=== PATIENT | female | born 1935 | race Hispanic/Latino ===

== ENCOUNTER 2016-12-06 07:36 | Day surgery (SDC) | payer MEDICARE, OTHER ==
[~2016-12-06 07:36] MED LIST: WATER FOR IRRIG STERILE IR ONE; WATER FOR IRRIG STERILE ONE
--- NOTE | 2016-12-06 08:18 | Anesthesia Consultation ---
Anesthesia Consult and Med Hx Date of service: 12/06/16 - Airway Anesthetic Teeth Evaluation: Partials ROM Head & Neck: Adequate Mental/Hyoid Distance: Adequate Mallampati Class: Class II Intubation Access Assessment: Probably Good - Pulmonary Exam CTA: Yes - Cardiac Exam Cardiac Exam: RRR - Pre-Operative Health Status ASA Pre-Surgery Classification: ASA3 Proposed Anesthetic Plan: MAC - Pulmonary Hx Sleep Apnea: Yes - Cardiovascular System Hx Hypertension: Yes Hx Cardia Arrhythmia: Yes (AFIB) - Central Nervous System CVA: Yes (LEFT SIDED WEAKNESS) - Endocrine Hx Renal Disease: Yes (STAGE III) Hx Hypothyroidism: Yes - Additional Comments Anesthesia Medical History Comments: CPAP. DM. A FIB. HTN. HYPOTHYROID. STAGE III KIDNEY DZ. [id number] X 2. LEFT SIDED WEAKNESS
--- NOTE | 2016-12-06 08:19 | Anesthesia Day of Surgery ---
Anesthesia Day of Surgery - Day of Surgery Patient Examined: Yes Patient H&P Reviewed: Yes Patient is NPO: Yes
[2016-12-06] MEDS ORDERED: DIPRIVAN 10 MG/ML IV ONE ×3 (08:22→09:05)
[2016-12-06] MEDS ORDERED: ADRENALIN ONE (08:55)
[2016-12-06] MEDS ORDERED: ADRENALIN IV ONE (09:00)
[2016-12-06] MEDS ORDERED: XYLOCAINE MPF 2% ONE (09:00)
--- NOTE | 2016-12-06 09:24 | Post Operative Note ---
Pre-op diagnosis: hematochezia, screening Post-op diagnosis: same (sigmoid mass, diverticulosis) Findings: sigmoid mass (~6-8 cm), piecemeal resection performed (epi injection 2 cc at based of polyp prior to hot snare) Diverticulosis Procedure: colonoscopy with piecemeal polypectomy of sigmoid pass Anesthesia: MAC Surgeon: BORIS BELL Estimated blood loss: minimal Pathology: list (sigmoid mass) Specimen disposition: to lab Condition: stable Disposition: same day
--- NOTE | 2016-12-06 09:37 | Post Anesthesia Evaluation ---
- Post Anesthesia Evaluation Patient Participated: Yes Airway Patent: Yes Stable Respiratory Function: Yes Nausea/Vomiting: No Temp > 96.8F: Yes Pain Manageable: Yes Adequeate Hydration: Yes Anesthesia Complications: No
[2016-12-06 10:24] VITALS: BP 158/76
[2016-12-06] MEDS ORDERED: NACL 0.9% 1000 ML 1,000 ML IV SCH (11:30)
--- NOTE | 2016-12-06 11:56 | Operative Report ---
PROCEDURE: Colonoscopy. PREOPERATIVE DIAGNOSES: Hematochezia, screening colonoscopy. POSTOPERATIVE DIAGNOSES: Sigmoid mass approximately 8 cm, status post piecemeal resection. ANESTHESIA: Monitored anesthesia care. COMPLICATIONS: No immediate complications. ESTIMATED BLOOD LOSS: Minimal. PROCEDURE: After consent was obtained, the patient was placed in left lateral decubitus position. The Fujinon colonoscope was advanced with direct vision and inserted through the anus and advanced to the cecum without difficulty. The quality of prep was fair. The views of the mucosa were good. The patient tolerated the procedure well. FINDINGS: There is approximately 8 cm, nonobstructing mass in the distal sigmoid colon. 2 mL of epinephrine were inserted at the base of the mass. Piecemeal resection was then performed with hot snare. One clip was placed at the polypectomy site. There were no signs of bleeding at the end of polypectomy. Mild diverticulosis. Sigmoid mass (nonobstructing, rule out malignancy). RECOMMENDATIONS: 1. Followup pathology. 2. Follow up in GI clinic in 2 weeks. 3. Repeat colonoscopy in 3 months to evaluate polypectomy site. 4. We will check CEA level and CT scan if there are signs of malignancy in the polyp. JOB# [id number] MERI/NTS
== END 2016-12-06 07:37 | disposition home or self-care (01) ==
LOC: GIO 07:36
PROVIDERS: ATTEND Internal Medicine Gastroenterology
DX: D12.5 Benign neoplasm of sigmoid colon (principal); K57.30 Diverticulosis of large intestine without perforation or abscess without bleeding; I48.91 Unspecified atrial fibrillation; E11.22 Type 2 diabetes mellitus with diabetic chronic kidney disease; I12.9 Hypertensive chronic kidney disease with stage 1 through stage 4 chronic kidney disease, or unspecified chronic kidney disease; N18.3 Chronic kidney disease, stage 3 (moderate); E03.9 Hypothyroidism, unspecified; G47.33 Obstructive sleep apnea (adult) (pediatric); Z86.73 Personal history of transient ischemic attack (TIA), and cerebral infarction without residual deficits; Z88.1 Allergy status to other antibiotic agents; Z88.8 Allergy status to other drugs, medicaments and biological substances; Z83.3 Family history of diabetes mellitus; Z82.49 Family history of ischemic heart disease and other diseases of the circulatory system; Z83.79 Family history of other diseases of the digestive system
CPT/HCPCS: 45381; 45385; 82962; 88305; J0171; J2704

== ENCOUNTER 2017-02-06 06:32 | Day surgery (SDC) | payer MEDICARE, OTHER ==
[2017-02-06] MEDS ORDERED: WATER FOR IRRIG STERILE IR ONE (07:13)
[2017-02-06] MEDS ORDERED: NACL 0.9% 1000 ML 1,000 ML ONE (07:32)
--- NOTE | 2017-02-06 07:38 | Anesthesia Day of Surgery ---
Anesthesia Day of Surgery - Day of Surgery Patient Examined: Yes Patient H&P Reviewed: Yes Patient is NPO: Yes
[2017-02-06] MEDS ORDERED: DIPRIVAN 10 MG/ML IV ONE (07:43)
--- NOTE | 2017-02-06 07:44 | Anesthesia Consultation ---
Anesthesia Consult and Med Hx Date of service: 02/06/17 - Airway Anesthetic Teeth Evaluation: Crowns, Partials (upper) ROM Head & Neck: Adequate Mental/Hyoid Distance: Adequate Mallampati Class: Class II Intubation Access Assessment: Probably Good - Pulmonary Exam CTA: Yes - Cardiac Exam Cardiac Exam: RRR - Pre-Operative Health Status ASA Pre-Surgery Classification: ASA3 Proposed Anesthetic Plan: MAC - Pulmonary Home Oxygen Therapy: Yes (when sleeping with CPAP. h/o pulm HTN) Hx Sleep Apnea: Yes (Uses CPAP @9cmH2O) - Cardiovascular System Hx Hypertension: Yes Hx Cardia Arrhythmia: Yes (AFIB) - Central Nervous System CVA: Yes (X2) - Endocrine Hx Renal Disease: Yes Hx Insulin Dependent Diabetes: Yes (diabetic peripheral neuropathy) Hx Hypothyroidism: Yes - Other Systems Hx Alcohol Use: No Hx Obesity: Yes (Morbid Obesity)
--- NOTE | 2017-02-06 07:44 | Anesthesia Consultation ---
Anesthesia Consult and Med Hx Date of service: 02/06/17 - Airway Anesthetic Teeth Evaluation: Good, Partials (upper) ROM Head & Neck: Adequate Mental/Hyoid Distance: Adequate Mallampati Class: Class II Intubation Access Assessment: Probably Good - Pulmonary Exam CTA: Yes - Cardiac Exam Cardiac Exam: RRR - Pre-Operative Health Status ASA Pre-Surgery Classification: ASA3 Proposed Anesthetic Plan: MAC - Pulmonary Hx Sleep Apnea: Yes (with CPCP) - Cardiovascular System Hx Hypertension: Yes Hx Cardia Arrhythmia: Yes (AFIB) - Central Nervous System CVA: Yes (X2) - Endocrine Hx Renal Disease: Yes Hx Hypothyroidism: Yes
[2017-02-06] MEDS ORDERED: NACL 0.9% 1000 ML 1,000 ML IV SCH (08:00)
--- NOTE | 2017-02-06 08:30 | Short Stay Summary ---
Short Stay Documentation Date of service: 02/06/17 Narrative H&P: 81 yo female with h/o large TA in sigmoid colon with piecemeal resection in November presents for surveillance flex sig to re-assess polypectomy site. States her diarrhea and hematochezia has resolved since previous colonoscopy. Denies new GI complaints at this time. - History H&P: obtained from office Social history: no significant social history - Allergies and Medications Current Medications: Allergies KORINA Inhibitors Adverse Reaction (Intermediate, Verified 02/06/17 07:56) QUIT BREATHING bacitracin [From Neosporin ([id number])] Adverse Reaction (Intermediate, Verified 02/06/17 07:56) BLISTERS bacitracin zinc [From Neosporin ([id number])] Adverse Reaction (Intermediate , Verified 02/06/17 07:56) BLISTERS neomycin sulfate [From Neosporin ([id number]-goe-inofl)] Adverse Reaction (Intermediate , Verified 02/06/17 07:56) BLISTERS polymyxin B [From Neosporin ([id number]-[id number])] Adverse Reaction (Intermediate, Verified 02/06/17 07:56) BLISTERS Home Medications Medication Instructions Recorded Confirmed Last Taken Type AtorvaSTATin [Lipitor] 40 mg PO QHS 12/06/16 02/06/17 02/05/17 History Digoxin [Digox] 0.125 mg PO DAILY 12/06/16 02/06/17 02/06/17 History Diltiazem HCl [Diltiazem 24Hr ER] 240 mg PO DAILY 12/06/16 02/06/17 02/05/17 History Doxazosin [Cardura] 4 mg PO QDAY 12/06/16 02/06/17 02/06/17 History Ergocalciferol [Vitamin D2] 1 cap PO QWEEK 12/06/16 02/06/17 01/31/17 History Furosemide [Furosemide] 20 mg PO DAILY 12/06/16 02/06/17 02/05/17 History Gabapentin [Gabapentin] 400 mg PO DAILY 12/06/16 02/06/17 02/05/17 History Glucosamine 1,500 Complex Cp 1,500 mg PO DAILY 12/06/16 02/06/17 02/05/17 History Levothyroxine Sodium [Synthroid] 112 mcg PO DAILY 12/06/16 02/06/17 02/05/17 History Losartan [Cozaar] 50 mg PO QDAY 12/06/16 02/06/17 02/05/17 History Chlorthalidone 25 mg PO DAILY 02/06/17 02/06/17 02/06/17 History Fish Oil 1 cap PO DAILY 02/06/17 02/06/17 02/05/17 History NovoLIN N 36 units SUB-Q BID 02/06/17 02/06/17 02/05/17 History NovoLOG Mix 70/30 VIAL 10 units SUB-Q TID 02/06/17 02/06/17 02/05/17 History Active Medications Sodium Chloride (Nacl 0.9% 1000 Ml) 1,000 mls @ 50 mls/hr IV DIRECT ИРИНА Last Admin: 02/06/17 07:59 Dose: 50 mls/hr - Physical exam General appearance: no acute distress Lungs: Clear to auscultation Heart: Regular rate, Normal S1, Normal S2 Gastrointestinal: normal, obese Extremities: abnormal (+ edema) - Brief post op/procedure progress note Date of procedure: 02/06/17 Pre-op diagnosis: surveillance colonoscopy, re-assess polypectomy site Post-op diagnosis: other (previous polypectomy site noted in distal sigmoid colon. Mild inflammation and erythema, no mass. biopsies obtained) Procedure: flex sig with biopsies Anesthesia: MAC Findings: flex sig: previous polypectomy site with mild inflammation/erythema. Biopsies obtained to r/o adenoma. Otherwise, no obvious residual polyp or mass Surgeon: BORIS BELL Estimated blood loss: minimal Pathology: list (sigmoid erythema/inflammation biopsies) Specimen disposition: to lab Condition: stable - Disposition Condition at discharge: Good Disposition: [id number] TO HOME OR SELFCARE Short Stay Discharge Plan Follow up with: TUTU GLYNN MD [Primary Care Provider] - 7 Days
[2017-02-06] MEDS ORDERED: WATER FOR IRRIG STERILE ONE (08:35)
--- NOTE | 2017-02-06 08:54 | Operative Report ---
Operative Report Operative Report: FLEXIBLE SIGMOIDOSCOPY DATE OF PROCEDURE: 02/06/2017 PRE-OP DIAGNOSIS: surveillance for recent polypectomy (recent piecemeal resection of ~7-8 cm polyp in sigmoid colon) POST-OP DIAGNOSIS: mild erythema and inflammation from prior polypectomy site ANESTHESIA: MAC COMPLICATIONS: No immediate complications ESTIMATED BLOOD LOSS: minimal PROCEDURE: After consent was obtained, the patient was placed in the left lateral decubitus position. The fujinon colonoscope was inserted into the rectum under direct vision and advanced to the descending colon without difficult. The patient tolerated the procedure well. The views of the mucosa was fair. The quality of prep was fair. FINDINGS: Mild erythematous and inflamed mucosa at prior polypectomy site in the distal sigmoid colon. Biopsies were obtained. Otherwise, no obvious residual polyp or mass seen. IMPRESSION: 1. Mild erythematous and inflamed mucosa from previous polypectomy site ( suspect secondary to healing mucosa from prior polypectomy). Biopsies were obtained to rule out adenomatous tissue. RECOMMENDATIONS: -follow-up pathology -return to GI clinic in 1 month -timing of surveillance colonoscopy based on pathology results (if adenomatous tissue, then would repeat in 3-6 months, otherwise repeat in 1-2 years)
[2017-02-06 09:44] VITALS: BP 141/65
== END 2017-02-06 06:33 | disposition home or self-care (01) ==
LOC: GIO 06:32
PROVIDERS: ATTEND Internal Medicine Gastroenterology
DX: Z09 Encounter for follow-up examination after completed treatment for conditions other than malignant neoplasm (principal); K52.9 Noninfective gastroenteritis and colitis, unspecified; E03.9 Hypothyroidism, unspecified; E11.42 Type 2 diabetes mellitus with diabetic polyneuropathy; I10 Essential (primary) hypertension; I48.91 Unspecified atrial fibrillation; I27.2 Other secondary pulmonary hypertension; E66.01 Morbid (severe) obesity due to excess calories; Z99.81 Dependence on supplemental oxygen; Z79.899 Other long term (current) drug therapy; Z79.4 Long term (current) use of insulin; Z88.1 Allergy status to other antibiotic agents; Z88.8 Allergy status to other drugs, medicaments and biological substances; Z86.73 Personal history of transient ischemic attack (TIA), and cerebral infarction without residual deficits; Z86.010 Personal history of colon polyps
CPT/HCPCS: 45331; 82962; 88305; J2704; J7030

== ENCOUNTER 2017-10-28 12:35 | Inpatient (IN) | payer MEDICARE, OTHER ==
[2017-10-28 13:42] LABS: Basophils % (Auto) 0.4 % (0.0-1.8); Eosinophils # (Auto) 0.1 K/mm3 (0.0-0.4); Eosinophils % (Auto) 1.3 % (0.0-4.3); Hematocrit 39.5 % (30.3-42.9); Hemoglobin 13.4 gm/dl (10.1-14.3); Lymphocytes # (Auto) 1.5 K/mm3 (1.2-5.4); Lymphocytes % (Auto) 15.4 % (13.4-35.0); Mean Corpuscular HGB Conc 34 % (30-34); Mean Corpuscular Hemoglobin 32 pg (28-32); Mean Corpuscular Volume 95 fl (79-97); Monocytes # (Auto) 0.7 K/mm3 (0.0-0.8); Monocytes % (Auto) 7.8 % (0.0-7.3); Platelet Count 162 K/mm3 (140-440); Red Blood Count 4.17 M/mm3 (3.65-5.03); Red Cell Distribution Width 13.5 % (13.2-15.2)
[2017-10-28 13:59] LABS: BUN/Creatinine Ratio 23; Blood Urea Nitrogen 18 mg/dL (7-17); Calcium 9.3 mg/dL (8.4-10.2); Hemolysis Index 7
--- NOTE | 2017-10-28 14:04 | XRay Report ---
ROUTINE CHEST, TWO VIEWS: HISTORY: Shortness of breath. Cardiomegaly, pulmonary venous congestion and trace right pleural effusion are identified. The lungs are clear otherwise. No pneumothorax. IMPRESSION: Mild CHF.
[2017-10-28 15:48] LABS: Alanine Aminotransferase 6 units/L (7-56); Albumin 3.6 g/dL (3.9-5)
[2017-10-28 15:53] LABS: Bilirubin,Direct < 0.2 mg/dL (0-0.2)
[2017-10-28 16:01] LABS: Bilirubin,Urine NEG (Negative); Blood,Urine NEG (Negative); Color,Urine Yellow (Yellow); Mucus,Urine FEW /HPF; Protein,Urine <15 mg/dL mg/dL (Negative)
--- NOTE | 2017-10-28 17:05 | Emergency Department Report ---
ED Shortness of Breath HPI - General Chief Complaint: Dyspnea/Respdistress Stated Complaint: SHORTNESS OF BREATH Time Seen by Provider: 10/28/17 14:12 Source: patient Mode of arrival: Wheelchair Limitations: Physical Limitation - History of Present Illness Initial Comments: Hypothyroidism, type 2 diabetes, atrial fibrillation, pulmonary hypertension, peripheral neuropathy, who reports having worsening shortness of breath over one week. She initially denied chest pain upon presentation. However upon questioning she does admit that she has pain that goes from "shoulder to shoulder". 4 years ago apparently she had to be cardioverted. She denies any cough at this time. She also admits to having a prior CVA. She also admits to having sleep apnea. 2011 she broke her left foot and since that time her left lower extremity has been edematous. The patient also takes digoxin. MD Complaint: shortness of breath -: Gradual, week(s) (1) Severity: moderate Consistency: constant Improves With: nothing Worsens With: exertion, movement Known History Of: COPD (states breathing treatments are not effective.) Associated Symptoms: denies other symptoms Treatments Prior to Arrival: none - Related Data Home Medications Medication Instructions Recorded Confirmed Last Taken AtorvaSTATin [Lipitor] 40 mg PO QHS 12/06/16 10/28/17 10/27/17 Digoxin [Digox] 0.125 mg PO DAILY 12/06/16 10/28/17 02/06/17 Diltiazem HCl [Diltiazem 24Hr ER] 240 mg PO DAILY 12/06/16 10/28/17 02/05/17 Doxazosin [Cardura] 4 mg PO QDAY 12/06/16 10/28/17 02/06/17 Ergocalciferol [Vitamin D2] 1 cap PO QWEEK 12/06/16 10/28/17 10/23/17 Gabapentin 400 mg PO TID 12/06/16 10/28/17 10/28/17 Levothyroxine Sodium [Synthroid] 112 mcg PO DAILY 12/06/16 10/28/17 10/28/17 Losartan [Cozaar] 50 mg PO QDAY 12/06/16 10/28/17 10/28/17 Chlorthalidone [Thalitone] 25 mg PO QDAY 10/28/17 10/28/17 Unknown Glucosamine HCl 1,500 mg PO DAILY 10/28/17 10/28/17 Unknown Insulin Aspart Protam & Aspart 10 units SUB-Q TID 10/28/17 10/28/17 10/28/17 [NovoLOG Mix 70-30 Flexpen] Insulin NPH, Human [NovoLIN N] 36 units SUB-Q BID 10/28/17 10/28/17 10/28/17 Multivitamin Tab [Multiple Vitamin 1 each PO DAILY 10/28/17 10/28/17 Unknown TAB (Theragran)] [place]-3/Dha/Epa/Fish Oil [Fish Oil 1 each PO DAILY 10/28/17 10/28/17 Unknown 1,000 mg Softgel] Allergies Allergy/AdvReac Type Severity Reaction Status Date / Time KORINA Inhibitors AdvReac Intermediate QUIT Verified 02/06/17 07:56 BREATHING bacitracin AdvReac Intermediate BLISTERS Verified 02/06/17 07:56 [From Neosporin ([id number])] bacitracin zinc AdvReac Intermediate BLISTERS Verified 02/06/17 07:56 [From Neosporin ([id number]-cit-mrtid)] neomycin sulfate AdvReac Intermediate BLISTERS Verified 02/06/17 07:56 [From Neosporin ([id number])] polymyxin B AdvReac Intermediate BLISTERS Verified 02/06/17 07:56 [From Neosporin ([id number])] ED Review of Systems ROS: Stated complaint: SHORTNESS OF BREATH Other details as noted in HPI Comment: All other systems reviewed and negative Constitutional: weakness Eyes: as per HPI ENT: as per HPI Respiratory: see HPI Cardiovascular: as per HPI Endocrine: see HPI Gastrointestinal: as per HPI Genitourinary: as per HPI Musculoskeletal: as per HPI Skin: as per HPI Neurological: as per HPI Psychiatric: as per HPI Hematological/Lymphatic: as per HPI ED Past Medical Hx - Past Medical History Hx Hypertension: Yes Hx Diabetes: Yes Hx Renal Disease: Yes Additional medical history: AFIB, PULMONARY HTN, NEUROPATHY - Surgical History Hx Cholecystectomy: Yes Hx Appendectomy: Yes Additional Surgical History: OVARIAN TUMOR - Social History Smoking Status: Never Smoker Substance Use Type: None - Medications Home Medications: Home Medications Medication Instructions Recorded Confirmed Last Taken Type AtorvaSTATin [Lipitor] 40 mg PO QHS 12/06/16 10/28/17 10/27/17 History Digoxin [Digox] 0.125 mg PO DAILY 12/06/16 10/28/17 02/06/17 History Diltiazem HCl [Diltiazem 24Hr ER] 240 mg PO DAILY 12/06/16 10/28/17 02/05/17 History Doxazosin [Cardura] 4 mg PO QDAY 12/06/16 10/28/17 02/06/17 History Ergocalciferol [Vitamin D2] 1 cap PO QWEEK 12/06/16 10/28/17 10/23/17 History Gabapentin 400 mg PO TID 12/06/16 10/28/17 10/28/17 History Levothyroxine Sodium [Synthroid] 112 mcg PO DAILY 12/06/16 10/28/17 10/28/17 History Losartan [Cozaar] 50 mg PO QDAY 12/06/16 10/28/17 10/28/17 History Chlorthalidone [Thalitone] 25 mg PO QDAY 10/28/17 10/28/17 Unknown History Glucosamine HCl 1,500 mg PO DAILY 10/28/17 10/28/17 Unknown History Insulin Aspart Protam & Aspart 10 units SUB-Q TID 10/28/17 10/28/17 10/28/17 History [NovoLOG Mix 70-30 Flexpen] Insulin NPH, Human [NovoLIN N] 36 units SUB-Q BID 10/28/17 10/28/17 10/28/17 History Multivitamin Tab [Multiple Vitamin 1 each PO DAILY 10/28/17 10/28/17 Unknown History TAB (Theragran)] [place]-3/Dha/Epa/Fish Oil [Fish Oil 1 each PO DAILY 10/28/17 10/28/17 Unknown History 1,000 mg Softgel] ED Physical Exam - General Limitations: Physical Limitation General appearance: alert, in no apparent distress - Head Head exam: Present: atraumatic, normocephalic - Eye Eye exam: Present: normal appearance, PERRL, EOMI - ENT ENT exam: Present: normal exam, normal orophraynx - Neck Neck exam: Present: normal inspection, full ROM - Respiratory Respiratory exam: Present: normal lung sounds bilaterally. Absent: respiratory distress, wheezes, rales, rhonchi - Cardiovascular Cardiovascular Exam: Present: bradycardia - GI/Abdominal GI/Abdominal exam: Present: soft, normal bowel sounds. Absent: distended, tenderness - Extremities Exam Extremities exam: Present: pedal edema (Left) - Neurological Exam Neurological exam: Present: alert, oriented X3, CN II-XII intact - Skin Skin exam: Present: warm, dry, intact ED Course Vital Signs 10/28/17 10/28/17 10/28/17 12:55 14:08 14:28 Temperature 98.3 F Pulse Rate 79 66 66 Respiratory 22 22 22 Rate Blood Pressure 104/74 Blood Pressure 133/67 [Left] O2 Sat by Pulse 95 94 97 Oximetry 10/28/17 10/28/17 10/28/17 14:30 15:00 15:30 Temperature Pulse Rate 65 55 L 67 Respiratory 18 20 16 Rate Blood Pressure 147/71 141/57 141/57 Blood Pressure [Left] O2 Sat by Pulse 95 97 96 Oximetry 10/28/17 10/28/17 16:00 16:30 Temperature Pulse Rate 52 L 48 L Respiratory 14 14 Rate Blood Pressure 139/47 139/54 Blood Pressure [Left] O2 Sat by Pulse 94 95 Oximetry - Reevaluation(s) Reevaluation #1: 10/28/17 17:08 We will need to admit the patient for further evaluation. She has an elevated BNP and DDIMER but denies history of CHF. Liklihood of DVT is present, so we will get an US of the lower extremities and due to her renal insufficiency we will get a VQ scan to assess for PE. 10/28/17 17:[address] Sheikh who is familiar with the patient. We will go ahead admit at this time. ED Medical Decision Making - Lab Data Result diagrams: 10/28/17 13:28 10/28/17 13:28 Critical care attestation.: If time is entered above; I have spent that time in minutes in the direct care of this critically ill patient, excluding procedure time. ED Disposition Clinical Impression: Shortness of breath on exertion, Bradycardia, Dyspnea on exertion A-fib Qualifiers: Atrial fibrillation type: chronic Qualified Code(s): I48.2 - Chronic atrial fibrillation Disposition: OP ADMIT IP TO THIS HOSP Is pt being admited?: Yes Does the pt Need Aspirin: No Condition: Stable
[2017-10-28 18:18] LABS: Chol/HDL Ratio 2.97 %
--- NOTE | 2017-10-28 20:46 | Nuclear Medicine Report ---
FINAL REPORT PROCEDURE: NM LUNG SCAN PERF/VENT TECHNIQUE: 5.0 mCi Tc-99m MAA was injected IV for pulmonary perfusion imaging in multiple projections. 15 MCi XE-[id number] was inhaled for pulmonary ventilation imaging in multiple projections. Injection site: RIGHT antecubital fossa. CPT 27447 REGULATORY GUIDELINES: The patient was released based upon guidelines established in [place] State Regulations for Protection Against Radiation, Chapter 3361-75-44-35, Release of Individuals Containing Radioactive Drugs or Implants. HISTORY: shortness of breath, Elevated D-Dimer, R/O PE COMPARISON: CHEST X-RAY 10/28/2017 FINDINGS: Perfusion: No defects . Ventilation: No defects . IMPRESSION: Normal Examination
[2017-10-29] MEDS ORDERED: ZOFRAN IV PRN
[2017-10-29] MEDS ORDERED: AMBIEN PO PRN
[2017-10-29] MEDS ORDERED: MORPHINE IV PRN
[2017-10-29] MEDS ORDERED: PERCOCET 5/325 PO PRN
[2017-10-29] MEDS ORDERED: TYLENOL PO PRN
--- NOTE | 2017-10-29 | Event Note ---
Date: 10/28/17 See dictated H/p in reports
[2017-10-29] MEDS: K-DUR PO SCH ×3 (02:01→22:07)
[2017-10-29 04:47] LABS: BUN/Creatinine Ratio 26; Blood Urea Nitrogen 21 mg/dL (7-17); Hemolysis Index 32
[2017-10-29] MEDS: LASIX IV SCH ×2 (06:50→19:37)
--- NOTE | 2017-10-29 13:49 | Consultation ---
History of Present Illness Consult date: 10/29/17 Requesting physician: DEDE CINTRON Consult reason: congestive heart failure History of present illness: The pt is an 82YO female with a past medical history significant for paroxysmal atrial flutter s/p DCCV 03/2012, HTN, HLP, DM, hypothyroidism, pulmonary HTN, JEF, chronic LLE edema (due to breaking her foot in 2011). She is followed in our office by Dr. Drake. She presented with complaints of progressively worsening shortness of breath and fatigue for the past 1 week. She denies any chest pain, palpitations, n/v, diaphoresis, dizziness or syncope. Following arrival, she was found to be in AFib with CVR. She reports that since her DCCV in 2011, she has not had any known recurrence of AFib. She was noted to AFib with SVR with a 3.2 second pause on telemetry overnight. Echo done 01/2015 showed EF 55-60%, impaired relaxation, RV mildly dilated, minimal MR, mild TR. Past History Past Medical History: atrial fib, diabetes, hypertension, hyperlipidemia, hypothyroidism, other (JEF) Medications and Allergies Allergies Allergy/AdvReac Type Severity Reaction Status Date / Time KORINA Inhibitors AdvReac Intermediate QUIT Verified 02/06/17 07:56 BREATHING bacitracin AdvReac Intermediate BLISTERS Verified 02/06/17 07:56 [From Neosporin ([id number])] bacitracin zinc AdvReac Intermediate BLISTERS Verified 02/06/17 07:56 [From Neosporin ([id number])] neomycin sulfate AdvReac Intermediate BLISTERS Verified 02/06/17 07:56 [From Neosporin ([id number])] polymyxin B AdvReac Intermediate BLISTERS Verified 02/06/17 07:56 [From Neosporin ([id number])] Home Medications Medication Instructions Recorded Confirmed Last Taken Type AtorvaSTATin [Lipitor] 40 mg PO QHS 12/06/16 10/28/17 10/27/17 History Digoxin [Digox] 0.125 mg PO DAILY 12/06/16 10/28/17 02/06/17 History Diltiazem HCl [Diltiazem 24Hr ER] 240 mg PO DAILY 12/06/16 10/28/17 02/05/17 History Doxazosin [Cardura] 4 mg PO QDAY 12/06/16 10/28/17 02/06/17 History Ergocalciferol [Vitamin D2] 1 cap PO QWEEK 12/06/16 10/28/17 10/23/17 History Gabapentin 400 mg PO TID 12/06/16 10/28/17 10/28/17 History Levothyroxine Sodium [Synthroid] 112 mcg PO DAILY 12/06/16 10/28/17 10/28/17 History Losartan [Cozaar] 50 mg PO QDAY 12/06/16 10/28/17 10/28/17 History Chlorthalidone [Thalitone] 25 mg PO QDAY 10/28/17 10/28/17 Unknown History Glucosamine HCl 1,500 mg PO DAILY 10/28/17 10/28/17 Unknown History Insulin Aspart Protam & Aspart 10 units SUB-Q TID 10/28/17 10/28/17 10/28/17 History [NovoLOG Mix 70-30 Flexpen] Insulin NPH, Human [NovoLIN N] 36 units SUB-Q BID 10/28/17 10/28/17 10/28/17 History Multivitamin Tab [Multiple Vitamin 1 each PO DAILY 10/28/17 10/28/17 Unknown History TAB (Theragran)] [place]-3/Dha/Epa/Fish Oil [Fish Oil 1 each PO DAILY 10/28/17 10/28/17 Unknown History 1,000 mg Softgel] Active Meds: Active Medications Acetaminophen (Tylenol) 650 mg PO Q4H PRN PRN Reason: Pain MILD(1-3)/Fever >100.5/DANIELLE Famotidine (Pepcid) 20 mg PO BID [facility] Furosemide (Lasix) 40 mg IV 0600,1800 [facility] Last Admin: 10/29/17 06:50 Dose: 40 mg Morphine Sulfate (Morphine) 2 mg IV Q4H PRN PRN Reason: Pain, Moderate (4-6) Ondansetron HCl (Zofran) 4 mg IV Q8H PRN PRN Reason: Nausea And Vomiting Oxycodone/Acetaminophen (Percocet 5/325) 1 tab PO Q6H PRN PRN Reason: Pain, Moderate (4-6) Potassium Chloride (K-Dur) 20 meq PO Q12HR [facility] Last Admin: 10/29/17 02:01 Dose: 20 meq Sodium Chloride (Sodium Chloride Flush Syringe 10 Ml) 10 ml IV BID ИРИНА Sodium Chloride (Sodium Chloride Flush Syringe 10 Ml) 10 ml IV PRN PRN PRN Reason: LINE FLUSH Zolpidem Tartrate (Ambien) 5 mg PO QHS PRN PRN Reason: Insomnia Review of Systems Constitutional: fatigue, no weight loss, no weight gain, no fever, no chills, no sweats Ears, nose, mouth and throat: no ear pain, no nose pain, no sinus pressure, no sinus pain Cardiovascular: shortness of breath, dyspnea on exertion, leg edema (chronic LLE ), no chest pain, no orthopnea, no palpitations, no rapid/irregular heart beat, no edema, no syncope, no lightheadedness Respiratory: shortness of breath, dyspnea on exertion, no cough, no congestion, no wheezing, no pain on inspiration Gastrointestinal: no abdominal pain, no nausea, no vomiting, no diarrhea, no constipation, no change in bowel habits Genitourinary Female: no pelvic pain, no flank pain, no dysuria, no urinary frequency, no urgency Musculoskeletal: no neck stiffness, no neck pain, no shooting arm pain, no arm numbness/tingling, no low back pain, no shooting leg pain, no leg numbness/ tingling, no redness of joints Integumentary: no rash, no pruritis, no redness, no sores, no wounds Neurological: no head injury, no paralysis, no weakness, no parathesias, no numbness, no tingling, no seizures, no syncope Psychiatric: no anxiety Endocrine: no cold intolerance, no heat intolerance Hematologic/Lymphatic: no easy bruising, no easy bleeding Allergic/Immunologic: no urticaria, no wheezing, no persistent infections Physical Examination Vital Signs Temp Pulse Resp BP Pulse Ox 98.3 F 79 22 104/74 95 10/28/17 12:55 10/28/17 12:55 10/28/17 12:55 10/28/17 12:55 10/28/17 12:55 General appearance: no acute distress HEENT: Positive: PERRL, Normocephaly, Mucus Membranes Moist Neck: Positive: neck supple, trachea midline Cardiac: Positive: irregularly irregular, S1/S2 Lungs: Positive: Decreased Breath Sounds Neuro: Positive: Grossly Intact Abdomen: Positive: Soft. Negative: Tender Skin: Negative: Rash, Wound Musculoskeletal: No Pain Extremities: Present: +2 Edema (LLE) Results 10/28/17 13:28 10/29/17 03:56 Cardiac Enzymes 10/28/17 Range/Units 14:53 AST 11 (5-40) units/L Lipids 10/28/17 Range/Units 17:15 Triglycerides 91 (2-149) mg/dL Cholesterol 113 (50-199) mg/dL HDL Cholesterol 38 L (40-59) mg/dL Cholesterol/HDL Ratio 2.97 % Comprehensive Metabolic Panel 10/28/17 10/28/17 10/29/17 Range/Units 13:28 14:53 03:56 Sodium 140 140 (137-145) mmol/L Potassium 4.3 4.9 (3.6-5.0) mmol/L Chloride 100.5 101.3 (98-107) mmol/L Carbon Dioxide 28 28 (22-30) mmol/L BUN 18 H 21 H (7-17) mg/dL Creatinine 0.8 0.8 (0.7-1.2) mg/dL Glucose 111 H 175 H (65-100) mg/dL Calcium 9.3 9.0 (8.4-10.2) mg/dL Direct Bilirubin < 0.2 (0-0.2) mg/dL Indirect Bilirubin 0.0 mg/dL AST 11 (5-40) units/L ALT 6 L (7-56) units/L Alkaline Phosphatase < 5 L (35-129) units/L Total Protein 6.2 L (6.3-8.2) g/dL Albumin 3.6 L (3.9-5) g/dL - Imaging and Cardiology Echo: pending, report reviewed ( 01/2015 showed EF 55-60%, impaired relaxation, RV mildly dilated, minimal MR, mild TR. ) EKG: report reviewed, image reviewed EKG interpretations - Telemetry EKG Rhythm: Atrial Fibrillation - EKG Supraventricular dysrhythmia: atrial fibrillation Assessment and Plan Assessment: Acute HFpEF Paroxysmal atrial flutter s/p DCCV 03/2012 - currently with CVR; SVR with a 3.2 second pause noted on telemetry overnight Elevated DDimer - V/Q scan normal HTN HLP DM H/o hypothyroidism H/o pulmonary HTN JEF Chronic LLE edema (due to breaking her foot in 2011) Plan: Hold home cardizem CD in setting of AFib with SVR overnight. Resume home losartan. Obtain digoxin level and consider resuming home digoxin pending digoxin level. Cont diuresis with IV lasix BID. Repeat BMP in AM. Initiate lovenox BID for systemic anticoagulation in regards to atrial fibrillation and consider conversion to OAC prior to hospital discharge. Await echo. Obtain BLE venous duplex to r/o venous thromboembolism. Assessment and plan reviewed with pt at bedside. The patient has been seen in conjunction with Dr. Lowry who agrees with the assessment and plan of care.
[2017-10-29] MEDS: SODIUM CHLORIDE FLUSH SYRINGE 10 ML IV SCH ×2 (14:00→22:10)
[2017-10-29] MEDS: PEPCID PO SCH ×2 (14:00→22:07)
--- NOTE | 2017-10-29 16:52 | History and Physical Report ---
History of Present Illness Date of examination: 10/28/17 Date of admission: 10/28/17 17:32 Chief complaint: Increasing SOB History of present illness: History of present illness: The pt is an 82YO female with a past medical history significant for paroxysmal atrial flutter s/p DCCV 03/2012, HTN, HLP, DM, hypothyroidism, pulmonary HTN, JEF, chronic LLE edema (due to breaking her foot in 2011). She is followed in our office by Dr. Drake. She presented with complaints of progressively worsening shortness of breath and fatigue for the past 1 week. She denies any chest pain, palpitations, n/v, diaphoresis, dizziness or syncope. Following arrival, she was found to be in AFib with CVR. She reports that since her DCCV in 2011, she has not had any known recurrence of AFib. She was noted to AFib with SVR with a 3.2 second pause on telemetry overnight. Echo done 01/2015 showed EF 55-60%, impaired relaxation, RV mildly dilated, minimal MR, mild TR. Past History Past Medical History: atrial fib, diabetes, hypertension, hyperlipidemia, hypothyroidism, other (JEF) Review of Systems Constitutional: fatigue, no weight loss, no weight gain, no fever, no chills, no sweats Ears, nose, mouth and throat: no ear pain, no nose pain, no sinus pressure, no sinus pain Cardiovascular: shortness of breath, dyspnea on exertion, leg edema (chronic LLE ), no chest pain, no orthopnea, no palpitations, no rapid/irregular heart beat, no edema, no syncope, no lightheadedness Respiratory: shortness of breath, dyspnea on exertion, no cough, no congestion, no wheezing, no pain on inspiration Gastrointestinal: no abdominal pain, no nausea, no vomiting, no diarrhea, no constipation, no change in bowel habits Genitourinary Female: no pelvic pain, no flank pain, no dysuria, no urinary frequency, no urgency Musculoskeletal: no neck stiffness, no neck pain, no shooting arm pain, no arm numbness/tingling, no low back pain, no shooting leg pain, no leg numbness/ tingling, no redness of joints Integumentary: no rash, no pruritis, no redness, no sores, no wounds Neurological: no head injury, no paralysis, no weakness, no parathesias, no numbness, no tingling, no seizures, no syncope Psychiatric: no anxiety Endocrine: no cold intolerance, no heat intolerance Hematologic/Lymphatic: no easy bruising, no easy bleeding Allergic/Immunologic: no urticaria, no wheezing, no persistent infections Past History Past Medical History: atrial fib, diabetes, hypertension, hyperlipidemia, hypothyroidism, other (JEF) Past Surgical History: No surgical history Social history: full code Family history: hypertension Medications and Allergies Allergies Allergy/AdvReac Type Severity Reaction Status Date / Time KORINA Inhibitors AdvReac Intermediate QUIT Verified 02/06/17 07:56 BREATHING bacitracin AdvReac Intermediate BLISTERS Verified 02/06/17 07:56 [From Neosporin ([id number])] bacitracin zinc AdvReac Intermediate BLISTERS Verified 02/06/17 07:56 [From Neosporin ([id number])] neomycin sulfate AdvReac Intermediate BLISTERS Verified 02/06/17 07:56 [From Neosporin ([id number])] polymyxin B AdvReac Intermediate BLISTERS Verified 02/06/17 07:56 [From Neosporin ([id number])] Home Medications Medication Instructions Recorded Confirmed Last Taken Type AtorvaSTATin [Lipitor] 40 mg PO QHS 12/06/16 10/28/17 10/27/17 History Digoxin [Digox] 0.125 mg PO DAILY 12/06/16 10/28/17 02/06/17 History Diltiazem HCl [Diltiazem 24Hr ER] 240 mg PO DAILY 12/06/16 10/28/17 02/05/17 History Doxazosin [Cardura] 4 mg PO QDAY 12/06/16 10/28/17 02/06/17 History Ergocalciferol [Vitamin D2] 1 cap PO QWEEK 12/06/16 10/28/17 10/23/17 History Gabapentin 400 mg PO TID 12/06/16 10/28/17 10/28/17 History Levothyroxine Sodium [Synthroid] 112 mcg PO DAILY 12/06/16 10/28/17 10/28/17 History Losartan [Cozaar] 50 mg PO QDAY 12/06/16 10/28/17 10/28/17 History Chlorthalidone [Thalitone] 25 mg PO QDAY 10/28/17 10/28/17 Unknown History Glucosamine HCl 1,500 mg PO DAILY 10/28/17 10/28/17 Unknown History Insulin Aspart Protam & Aspart 10 units SUB-Q TID 10/28/17 10/28/17 10/28/17 History [NovoLOG Mix 70-30 Flexpen] Insulin NPH, Human [NovoLIN N] 36 units SUB-Q BID 10/28/17 10/28/17 10/28/17 History Multivitamin Tab [Multiple Vitamin 1 each PO DAILY 10/28/17 10/28/17 Unknown History TAB (Theragran)] [place]-3/Dha/Epa/Fish Oil [Fish Oil 1 each PO DAILY 10/28/17 10/28/17 Unknown History 1,000 mg Softgel] Active Meds: Active Medications Acetaminophen (Tylenol) 650 mg PO Q4H PRN PRN Reason: Pain MILD(1-3)/Fever >100.5/DANIELLE Atorvastatin Calcium (Lipitor) 40 mg PO QHS [facility] Enoxaparin Sodium (Lovenox) 100 mg SUB-Q Q12HR [facility] Famotidine (Pepcid) 20 mg PO BID [facility] Last Admin: 10/29/17 14:00 Dose: 20 mg Furosemide (Lasix) 40 mg IV 0600,1800 [facility] Last Admin: 10/29/17 06:50 Dose: 40 mg Losartan Potassium (Cozaar) 50 mg PO QDAY [facility] Morphine Sulfate (Morphine) 2 mg IV Q4H PRN PRN Reason: Pain, Moderate (4-6) Ondansetron HCl (Zofran) 4 mg IV Q8H PRN PRN Reason: Nausea And Vomiting Oxycodone/Acetaminophen (Percocet 5/325) 1 tab PO Q6H PRN PRN Reason: Pain, Moderate (4-6) Potassium Chloride (K-Dur) 20 meq PO Q12HR [facility] Last Admin: 10/29/17 13:59 Dose: 20 meq Sodium Chloride (Sodium Chloride Flush Syringe 10 Ml) 10 ml IV BID [facility] Last Admin: 10/29/17 14:00 Dose: 10 ml Sodium Chloride (Sodium Chloride Flush Syringe 10 Ml) 10 ml IV PRN PRN PRN Reason: LINE FLUSH Zolpidem Tartrate (Ambien) 5 mg PO QHS PRN PRN Reason: Insomnia Exam - Constitutional Vitals: Temp Pulse Resp BP Pulse Ox 97.8 F 76 18 180/70 96 10/29/17 13:50 10/29/17 13:50 10/29/17 13:50 10/29/17 13:50 10/29/17 07:53 General appearance: Present: no acute distress, well-nourished - EENT Eyes: Present: PERRL ENT: hearing intact, clear oral mucosa - Neck Neck: Present: supple, normal ROM - Respiratory Respiratory effort: normal Respiratory: bilateral: CTA - Cardiovascular Heart Sounds: Present: S1 & S2. Absent: rub, click - Extremities Extremities: pulses symmetrical, No edema Peripheral Pulses: within normal limits - Abdominal General gastrointestinal: Present: soft, non-tender, non-distended, normal bowel sounds Female genitourinary: Present: normal - Integumentary Integumentary: Present: clear, warm, dry - Musculoskeletal Musculoskeletal: gait normal, strength equal bilaterally - Psychiatric Psychiatric: appropriate mood/affect, intact judgment & insight - Neurologic Neurologic: CNII-XII intact, moves all extremities Results - Labs CBC & Chem 7: 10/30/17 04:33 11/01/17 06:42 Labs: Laboratory Last Values WBC 9.6 K/mm3 (4.5-11.0) 10/28/17 13:28 RBC 4.17 M/mm3 (3.65-5.03) 10/28/17 13:28 Hgb 13.4 gm/dl (10.1-14.3) 10/28/17 13:28 Hct 39.5 % (30.3-42.9) 10/28/17 13:28 MCV 95 fl (79-97) 10/28/17 13:28 MCH 32 pg (28-32) 10/28/17 13:28 MCHC 34 % (30-34) 10/28/17 13:28 RDW 13.5 % (13.2-15.2) 10/28/17 13:28 Plt Count 162 K/mm3 (140-440) 10/28/17 13:28 Lymph % (Auto) 15.4 % (13.4-35.0) 10/28/17 13:28 [place] % (Auto) 7.8 % (0.0-7.3) H 10/28/17 13:28 Eos % (Auto) 1.3 % (0.0-4.3) 10/28/17 13:28 Baso % (Auto) 0.4 % (0.0-1.8) 10/28/17 13:28 Lymph # 1.5 K/mm3 (1.2-5.4) 10/28/17 13:28 [place] # 0.7 K/mm3 (0.0-0.8) 10/28/17 13:28 Eos # 0.1 K/mm3 (0.0-0.4) 10/28/17 13:28 Baso # 0.0 K/mm3 (0.0-0.1) 10/28/17 13:28 Seg Neutrophils % 75.1 % (40.0-70.0) H 10/28/17 13:28 Seg Neutrophils # 7.3 K/mm3 (1.8-7.7) 10/28/17 13:28 D-Dimer 1346.39 ng/mlDDU (0-234) H 10/28/17 14:21 Sodium 140 mmol/L (137-145) 10/29/17 03:56 Potassium 4.9 mmol/L (3.6-5.0) 10/29/17 03:56 Chloride 101.3 mmol/L (98-107) 10/29/17 03:56 Carbon Dioxide 28 mmol/L (22-30) 10/29/17 03:56 Anion Gap 16 mmol/L 10/29/17 03:56 BUN 21 mg/dL (7-17) H 10/29/17 03:56 Creatinine 0.8 mg/dL (0.7-1.2) 10/29/17 03:56 Estimated GFR > 60 ml/min 10/29/17 03:56 BUN/Creatinine Ratio 26 % 10/29/17 03:56 Glucose 175 mg/dL (65-100) H 10/29/17 03:56 POC Glucose 144 (70-105) H 10/29/17 06:43 Hemoglobin A1c 5.8 % (4-6) 10/29/17 00:36 Calcium 9.0 mg/dL (8.4-10.2) 10/29/17 03:56 Total Bilirubin 0.50 mg/dL (0.1-1.2) 10/28/17 14:53 Direct Bilirubin < 0.2 mg/dL (0-0.2) 10/28/17 14:53 Indirect Bilirubin 0.0 mg/dL 10/28/17 14:53 AST 11 units/L (5-40) 10/28/17 14:53 ALT 6 units/L (7-56) L 10/28/17 14:53 Alkaline Phosphatase < 5 units/L (35-129) L 10/28/17 14:53 Troponin T 0.043 ng/mL (0.00-0.029) H 10/28/17 17:15 NT-Pro-B Natriuret Pep 2748 pg/mL (0-900) H 10/28/17 14:53 Total Protein 6.2 g/dL (6.3-8.2) L 10/28/17 14:53 Albumin 3.6 g/dL (3.9-5) L 10/28/17 14:53 Albumin/Globulin Ratio 1.4 % 10/28/17 14:53 Triglycerides 91 mg/dL (2-149) 10/28/17 17:15 Cholesterol 113 mg/dL (50-199) 10/28/17 17:15 LDL Cholesterol Direct 66 mg/dL (50-130) 10/28/17 17:15 HDL Cholesterol 38 mg/dL (40-59) L 10/28/17 17:15 Cholesterol/HDL Ratio 2.97 % 10/28/17 17:15 Urine Color Yellow (Yellow) 10/28/17 15:42 Urine Turbidity Clear (Clear) 10/28/17 15:42 Urine pH 7.0 (5.0-7.0) 10/28/17 15:42 Ur Specific [place] 1.014 (1.003-1.030) 10/28/17 15:42 Urine Protein <15 mg/dl mg/dL (Negative) 10/28/17 15:42 Urine Glucose (UA) Neg mg/dL (Negative) 10/28/17 15:42 Urine Ketones Neg mg/dL (Negative) 10/28/17 15:42 Urine Blood Neg (Negative) 10/28/17 15:42 Urine Nitrite Neg (Negative) 10/28/17 15:42 Urine Bilirubin Neg (Negative) 10/28/17 15:42 Urine Urobilinogen 2.0 mg/dL (<2.0) 10/28/17 15:42 Ur Leukocyte Esterase Neg (Negative) 10/28/17 15:42 Urine WBC (Auto) 4.0 /HPF (0.0-6.0) 10/28/17 15:42 Urine RBC (Auto) 3.0 /HPF (0.0-6.0) 10/28/17 15:42 U Epithel Cells (Auto) 5.0 /HPF (0-13.0) 10/28/17 15:42 Urine Mucus Few /HPF 10/28/17 15:42 Digoxin 1.0 ng/mL (0.9-2.0) 10/29/17 14:38 Assessment and Plan Assessment and plan: Assessment: Acute HF--Diastolic Paroxysmal atrial flutter s/p DCCV 03/2012 - currently with CVR; SVR with a 3.2 second pause noted on telemetry overnight Elevated DDimer - V/Q scan normal HTN HLP DM H/o hypothyroidism H/o pulmonary HTN JEF Chronic LLE edema (due to breaking her foot in 2011) Plan: Hold home cardizem CD in setting of AFib with SVR overnight. Resume home losartan. Obtain digoxin level and consider resuming home digoxin pending digoxin level. Cont diuresis with IV lasix BID. Repeat BMP in AM. Initiate lovenox BID for systemic anticoagulation in regards to atrial fibrillation and consider conversion to OAC prior to hospital discharge. Await echo. Obtain BLE venous duplex to r/o venous thromboembolism. Assessment and plan reviewed with pt at bedside. Advance Directives: Yes (Full code) VTE prophylaxis?: Chemical Plan of care discussed with patient/family: Yes
--- NOTE | 2017-10-29 17:39 | Progress Note ---
Assessment and Plan Assessment: Acute HF--Diastolic Paroxysmal atrial flutter s/p DCCV 03/2012 - currently with CVR; SVR with a 3.2 second pause noted on telemetry overnight Elevated DDimer - V/Q scan normal HTN HLP DM H/o hypothyroidism H/o pulmonary HTN JEF Chronic LLE edema (due to breaking her foot in 2011) Plan: Hold home cardizem CD in setting of AFib with SVR overnight. Resume home losartan. Obtain digoxin level and consider resuming home digoxin pending digoxin level. Cont diuresis with IV lasix BID. Repeat BMP in AM. Initiate lovenox BID for systemic anticoagulation in regards to atrial fibrillation and consider conversion to OAC prior to hospital discharge. Await echo. Obtain BLE venous duplex to r/o venous thromboembolism. Assessment and plan reviewed with pt at bedside. Subjective Date of service: 10/29/17 Principal diagnosis: Acute Diastolic HF Interval history: Sx better Objective - Constitutional Vitals: Vital Signs - 12hr 10/29/17 10/29/17 07:53 13:50 Temperature 97.8 F Pulse Rate 70 76 Respiratory 18 Rate Blood Pressure 180/70 [Left] O2 Sat by Pulse 96 Oximetry General appearance: Present: no acute distress, well-nourished - EENT Eyes: PERRL, EOM intact ENT: hearing intact, clear oral mucosa Ears: bilateral: normal - Neck Neck: supple, normal ROM - Respiratory Respiratory effort: normal Respiratory: bilateral: CTA - Breasts Breasts: normal - Cardiovascular Rhythm: regular Heart Sounds: Present: S1 & S2. Absent: gallop, rub Extremities: pulses intact, No edema, normal color, Full ROM - Gastrointestinal General gastrointestinal: Present: soft, non-tender, non-distended, normal bowel sounds - Genitourinary Female genitourinary: normal - Integumentary Integumentary: clear, warm, dry - Musculoskeletal Musculoskeletal: 1, strength equal bilaterally - Neurologic Neurologic: moves all extremities - Psychiatric Psychiatric: memory intact, appropriate mood/affect, intact judgment & insight - Labs CBC & Chem 7: 10/30/17 04:33 11/01/17 06:42 Labs: Abnormal lab results 10/28/17 10/28/17 10/28/17 Range/Units 17:15 20:57 22:09 BUN (7-17) mg/dL Glucose (65-100) mg/dL POC Glucose 51 L 119 H (70-105) Troponin T 0.043 H (0.00-0.029) ng/mL HDL Cholesterol 38 L (40-59) mg/dL 10/29/17 10/29/17 Range/Units 03:56 06:43 BUN 21 H (7-17) mg/dL Glucose 175 H (65-100) mg/dL POC Glucose 144 H (70-105) Troponin T (0.00-0.029) ng/mL HDL Cholesterol (40-59) mg/dL
[2017-10-29] MEDS: THERAGRAN Tab PO SCH (19:34)
[2017-10-29] MEDS: LANOXIN PO SCH (19:36)
[2017-10-29] MEDS: CARDIZEM CD PO SCH (19:36)
[2017-10-29] MEDS: CARDURA PO SCH (19:36)
[2017-10-29] MEDS: COZAAR PO SCH (19:37)
[2017-10-29] MEDS ORDERED: LOVENOX SUB-Q SCH (22:00)
[2017-10-29] MEDS: LOVENOX SUB-Q SCH (22:07)
[2017-10-29] MEDS: ELIQUIS PO SCH (22:07)
[2017-10-29] MEDS: NEURONTIN PO SCH (22:08)
[2017-10-30 05:10] LABS: Basophils % (Auto) 0.4 % (0.0-1.8); Eosinophils # (Auto) 0.2 K/mm3 (0.0-0.4); Eosinophils % (Auto) 2.4 % (0.0-4.3); Hematocrit 36.7 % (30.3-42.9); Hemoglobin 12.3 gm/dl (10.1-14.3); Lymphocytes # (Auto) 1.4 K/mm3 (1.2-5.4); Mean Corpuscular HGB Conc 34 % (30-34); Mean Corpuscular Hemoglobin 31 pg (28-32); Mean Corpuscular Volume 94 fl (79-97); Monocytes # (Auto) 0.7 K/mm3 (0.0-0.8); Monocytes % (Auto) 8.6 % (0.0-7.3); Platelet Count 179 K/mm3 (140-440); Red Blood Count 3.92 M/mm3 (3.65-5.03); Red Cell Distribution Width 13.4 % (13.2-15.2)
[2017-10-30 05:25] LABS: Alanine Aminotransferase 6 units/L (7-56); Albumin 3.1 g/dL (3.9-5); BUN/Creatinine Ratio 24; Blood Urea Nitrogen 17 mg/dL (7-17); Calcium 9.1 mg/dL (8.4-10.2); Hemolysis Index 0
[2017-10-30] MEDS: LASIX IV SCH ×2 (06:27→18:17)
[2017-10-30] MEDS: SODIUM CHLORIDE FLUSH SYRINGE 10 ML IV PRN (06:27)
[2017-10-30] MEDS: SYNTHROID PO SCH (06:27)
[2017-10-30] MEDS: NEURONTIN PO SCH ×3 (08:52→21:23)
[2017-10-30] MEDS: LANOXIN PO SCH (10:38)
[2017-10-30] MEDS: ELIQUIS PO SCH ×2 (10:38→21:24)
[2017-10-30] MEDS: K-DUR PO SCH ×2 (10:38→21:23)
[2017-10-30] MEDS: CARDIZEM CD PO SCH (10:38)
[2017-10-30] MEDS: PEPCID PO SCH ×2 (10:39→21:23)
[2017-10-30] MEDS: THERAGRAN Tab PO SCH (10:39)
[2017-10-30] MEDS: CARDURA PO SCH (10:39)
[2017-10-30] MEDS: THALITONE PO SCH (10:40)
[2017-10-30] MEDS: COZAAR PO SCH (10:40)
[2017-10-30] MEDS: SODIUM CHLORIDE FLUSH SYRINGE 10 ML IV SCH ×2 (10:44→21:24)
--- NOTE | 2017-10-30 11:33 | Progress Note ---
Assessment and Plan Assessment: Acute HFpEF, EF 60-65% Paroxysmal atrial flutter s/p DCCV 03/2012 - currently with CVR; SVR with a 3.2 second pause noted on telemetry 10/29 Elevated DDimer - V/Q scan normal HTN HLP DM H/o hypothyroidism H/o pulmonary HTN JEF Chronic LLE edema (due to breaking her foot in 2011) Plan: Clinically improving. Cont diuresis with IV lasix BID. Repeat BMP in AM. Patient remains in afib with CVR, no significant pauses noted overnight. Continue cardizem and digoxin. Continue tele monitoring. Echo showed mild LVH, EF 60-65%, mild-mod MR, mild-mod TR, RVSP 69mmHg. BLE venous Duplex showed probable chronic DVT of the right popliteal. Elquis initiated. Assessment and plan reviewed with pt at bedside. The patient has been seen in conjunction with Dr. Lowry who agrees with the assessment and plan of care. Subjective Date of service: 10/30/17 Principal diagnosis: acute HFpEF Interval history: The patient is resting in bed. Shortness of breath improved but not yet back to baseline. Denies chest pain or shortness of breath. Atrial fibrillation with CVR on the monitor, HR as low as 40s overnight. Pt. asymptomatic. Objective Last Vital Signs Temp 98.1 F 10/30/17 05:17 Pulse 77 10/30/17 10:38 Resp 18 10/30/17 05:17 BP 163/89 10/30/17 10:40 Pulse Ox 94 10/30/17 05:17 - Physical Examination General: No Apparent Distress HEENT: Positive: PERRL, Normocephaly, Mucus Membranes Moist Neck: Positive: neck supple, trachea midline Cardiac: Positive: irregularly irregular, S1/S2 Lungs: Positive: Decreased Breath Sounds Neuro: Positive: Grossly Intact Abdomen: Positive: Soft. Negative: Tender Skin: Negative: Rash, Wound Musculoskeletal: No Pain Extremities: Present: +2 Edema (LLE) - Labs and Meds Cardiac Enzymes 10/30/17 Range/Units 04:33 AST 12 (5-40) units/L CBC 10/30/17 Range/Units 04:33 WBC 7.9 (4.5-11.0) K/mm3 RBC 3.92 (3.65-5.03) M/mm3 Hgb 12.3 (10.1-14.3) gm/dl Hct 36.7 (30.3-42.9) % Plt Count 179 (140-440) K/mm3 Lymph # 1.4 (1.2-5.4) K/mm3 [place] # 0.7 (0.0-0.8) K/mm3 Eos # 0.2 (0.0-0.4) K/mm3 Baso # 0.0 (0.0-0.1) K/mm3 Comprehensive Metabolic Panel 10/30/17 Range/Units 04:33 Sodium 141 (137-145) mmol/L Potassium 4.1 (3.6-5.0) mmol/L Chloride 99.1 (98-107) mmol/L Carbon Dioxide 32 H (22-30) mmol/L BUN 17 (7-17) mg/dL Creatinine 0.7 (0.7-1.2) mg/dL Calcium 9.1 (8.4-10.2) mg/dL AST 12 (5-40) units/L ALT 6 L (7-56) units/L Alkaline Phosphatase 72 (35-129) units/L Total Protein 6.2 L (6.3-8.2) g/dL Albumin 3.1 L (3.9-5) g/dL - Imaging and Cardiology EKG: report reviewed, image reviewed Echo: report reviewed ( 10/2017: mild LVH, EF 60-65%, mild-mod MR, mild-mod TR, RVSP 69mmHg) - Telemetry EKG Rhythm: Atrial Fibrillation
[2017-10-30] MEDS: LOVENOX SUB-Q SCH (14:21)
--- NOTE | 2017-10-30 15:31 | Vascular Lab Report ---
LOWER EXTREMITY VENOUS DUPLEX: REASON FOR EXAM: Short of breath and elevated d-dimer. COMMENTS ON THE RIGHT: A small area of chronic partially occluding thrombus is seen in the proximal popliteal vein. The remaining veins visualized are freely compressible without evidence of internal echogenicity. Spontaneous and phasic flow is present proximally. COMMENTS ON THE LEFT: All veins visualized are freely compressible without evidence of internal echogenicity. Flow is spontaneous and phasic throughout. IMPRESSION: A small amount of partially occluding chronic thrombus is seen in the right popliteal vein. No evidence of acute deep venous thrombosis in either lower extremity. The study was somewhat technically limited due to patient body habitus.
--- NOTE | 2017-10-30 16:25 | Progress Note ---
Assessment and Plan - Patient Problems (1) Acute diastolic (congestive) heart failure Current Visit: Yes Status: Acute Plan to address problem: Improved Cont Diuretics (2) Paroxysmal atrial fibrillation Current Visit: Yes Status: Acute Plan to address problem: Rate controlled now Cont Digoxin and Diltiazem Vascular consulted reg Oral anticoagulation in view of past retroperitoneal Hge around 2013 (3) Chronic deep vein thrombosis (DVT) of popliteal vein of right lower extremity Current Visit: Yes Status: Chronic Plan to address problem: Vascular consulted reg Oral anticoagulation in view of past retroperitoneal Hge around 2013 (4) JEF (obstructive sleep apnea) Current Visit: Yes Status: Chronic Plan to address problem: CPAP as necessary (5) HTN (hypertension) Current Visit: Yes Status: Chronic Qualifiers: Hypertension type: essential hypertension Qualified Code(s): I10 - Essential (primary) hypertension Plan to address problem: Cont antihypertensives (6) T2DM (type 2 diabetes mellitus) Current Visit: Yes Status: Chronic Qualifiers: Diabetes mellitus senior living insulin use: with senior living use Diabetes mellitus complication detail: with polyneuropathy Plan to address problem: Cont Insulin and coverage (7) HLD (hyperlipidemia) Current Visit: Yes Status: Chronic Qualifiers: Hyperlipidemia type: mixed hyperlipidemia Qualified Code(s): E78.2 - Mixed hyperlipidemia Plan to address problem: Cont statins (8) DVT prophylaxis Current Visit: Yes Status: Acute Plan to address problem: On Heparin Subjective Date of service: 10/30/17 Principal diagnosis: acute Heart failure Interval history: Sx better Objective - Constitutional Vitals: Vital Signs - 12hr 10/30/17 10/30/17 10/30/17 05:17 08:02 10:38 Temperature 98.1 F 98.2 F Pulse Rate 69 76 77 Respiratory 18 18 Rate Blood Pressure 135/62 163/81 163/89 O2 Sat by Pulse 94 96 Oximetry 10/30/17 10/30/17 10/30/17 10:39 10:40 12:16 Temperature 98.3 F Pulse Rate 62 Respiratory 18 Rate Blood Pressure 163/89 163/89 152/60 O2 Sat by Pulse 95 Oximetry General appearance: Present: no acute distress, well-nourished - EENT Eyes: PERRL, EOM intact ENT: hearing intact, clear oral mucosa Ears: bilateral: normal - Neck Neck: supple, normal ROM - Respiratory Respiratory effort: normal Respiratory: bilateral: CTA, rhonchi - Breasts Breasts: normal - Cardiovascular Heart rate: 80 Rhythm: irregularly irregular Heart Sounds: Present: S1 & S2. Absent: gallop, rub Extremities: no ischemia, pulses intact, No edema, normal color, Full ROM - Gastrointestinal General gastrointestinal: Present: soft, non-tender, non-distended, normal bowel sounds - Genitourinary Female genitourinary: normal - Integumentary Integumentary: clear, warm, dry - Musculoskeletal Musculoskeletal: 1, strength equal bilaterally - Neurologic Neurologic: moves all extremities - Psychiatric Psychiatric: memory intact, appropriate mood/affect, intact judgment & insight - Allied health notes Allied health notes reviewed: nursing - Labs CBC & Chem 7: 10/30/17 04:33 11/01/17 06:42 Labs: Abnormal lab results 10/29/17 10/30/17 10/30/17 Range/Units 21:17 04:33 04:33 [place] % (Auto) 8.6 H (0.0-7.3) % Seg Neutrophils % 70.6 H (40.0-70.0) % Carbon Dioxide 32 H (22-30) mmol/L Glucose 133 H (65-100) mg/dL POC Glucose 210 H (70-105) ALT 6 L (7-56) units/L Total Protein 6.2 L (6.3-8.2) g/dL Albumin 3.1 L (3.9-5) g/dL 10/30/17 10/30/17 Range/Units 07:05 12:22 [place] % (Auto) (0.0-7.3) % Seg Neutrophils % (40.0-70.0) % Carbon Dioxide (22-30) mmol/L Glucose (65-100) mg/dL POC Glucose 156 H 165 H (70-105) ALT (7-56) units/L Total Protein (6.3-8.2) g/dL Albumin (3.9-5) g/dL
[2017-10-31] MEDS: LASIX IV SCH (06:08)
[2017-10-31] MEDS: SYNTHROID PO SCH (06:10)
--- NOTE | 2017-10-31 10:13 | Progress Note ---
Assessment and Plan Assessment: Acute HFpEF Paroxysmal atrial flutter s/p DCCV 03/2012 - currently with CVR Elevated DDimer - V/Q scan normal HTN HLP DM H/o hypothyroidism H/o pulmonary HTN JEF Probable chronic DVT in right popliteal Chronic LLE edema (due to breaking her foot in 2011) Plan: Clinically improving. Cont diuresis with IV lasix BID. Repeat BMP in AM. Patient remains in afib with CVR, no significant pauses noted overnight. Continue cardizem and digoxin. Continue tele monitoring. BLE venous Duplex showed probable chronic DVT of the right popliteal. Eliquis initiated per primary. Pt could benefit from systemic AC in regards to atrial fibrillation/atrial flutter. Pt with h/o right retroperitoneal/right perinephric hemorrhage in 2012. Will consult vascular for systemic anticoagulation recommendations. Assessment and plan reviewed with pt at bedside. The patient has been seen in conjunction with Dr. Raphael Prieto who agrees with the assessment and plan of care. Subjective Date of service: 10/31/17 Principal diagnosis: acute HFpEF Interval history: pt ambulating around room without difficulty, states SOB improving. Remains in AFib with CVR on telemetry, no pauses or bradycardia noted overnight. Objective Last Vital Signs Temp 97.7 F 10/31/17 08:17 Pulse 69 10/31/17 08:17 Resp 18 10/31/17 08:17 BP 147/49 10/31/17 08:17 Pulse Ox 95 10/31/17 08:17 - Physical Examination General: No Apparent Distress HEENT: Positive: PERRL, Normocephaly, Mucus Membranes Moist Neck: Positive: neck supple, trachea midline Cardiac: Positive: irregularly irregular, S1/S2 Lungs: Positive: Decreased Breath Sounds Neuro: Positive: Grossly Intact Abdomen: Positive: Soft. Negative: Tender Skin: Negative: Rash, Wound Musculoskeletal: No Pain Extremities: Present: +2 Edema (LLE) - Labs and Meds Comprehensive Metabolic Panel 10/30/17 Range/Units 04:33 Glucose 133 H (65-100) mg/dL - Imaging and Cardiology EKG: report reviewed, image reviewed Echo: report reviewed ( 10/2017: mild LVH, EF 60-65%, mild-mod MR, mild-mod TR, RVSP 69mmHg)
[2017-10-31] MEDS: LANOXIN PO SCH (11:38)
[2017-10-31] MEDS: THALITONE PO SCH (11:38)
[2017-10-31] MEDS: NEURONTIN PO SCH ×3 (11:39→21:40)
[2017-10-31] MEDS: CARDURA PO SCH (11:39)
[2017-10-31] MEDS: THERAGRAN Tab PO SCH (11:39)
[2017-10-31] MEDS: K-DUR PO SCH ×2 (11:39→21:40)
[2017-10-31] MEDS: COZAAR PO SCH (11:40)
[2017-10-31] MEDS: CARDIZEM CD PO SCH (11:40)
[2017-10-31] MEDS: PEPCID PO SCH ×2 (11:40→21:40)
[2017-10-31] MEDS: SODIUM CHLORIDE FLUSH SYRINGE 10 ML IV SCH (11:41)
[2017-10-31] MEDS: ELIQUIS PO SCH ×2 (11:42→21:39)
--- NOTE | 2017-10-31 16:50 | Consultation ---
History of Present Illness - Reason for Consult Consult date: 10/31/17 Requesting physician: JUNAID MARTINEZ - History of Present Illness This patient is an 82-year-old female that was admitted via the emergency room on 10/28/2017 due to shortness of breath. She was noted to be an acute diastolic congestive heart failure. Her symptoms have improved following admission. She has a history of paroxysmal atrial fibrillation. She has been evaluated by cardiology. Her workup included a lower extremity venous duplex which revealed a small amount of partially occluding chronic thrombus seen in the right popliteal vein. No evidence of deep vein thrombus in the left lower extremity. A vascular surgery consult has been requested to further evaluate and offer an opinion on the need for anticoagulation. A VQ scan was reported as normal without either perfusion or ventilation defect. The patient was unaware of a previous history of DVT. She does have a history of a left lower extremity knee fracture which resulted in her staying in a rehabilitation facility for approximately 6 months. She was previously on anticoagulation with Coumadin due to her atrial fibrillation. She states that she was well maintained in a therapeutic level. This was ultimately stopped following a spontaneous retroperitoneal bleed from her right kidney in 2012. According to the patient, she has been off all antiplatelet and anticoagulation since that time. Past History Past Medical History: atrial fib, diabetes, hypertension, hyperlipidemia, hypothyroidism, other (JEF) Past Surgical History: appendectomy, cholecystectomy, hysterectomy (including the excision of a large ovarian mass) Social history: , full code. denies: smoking, alcohol abuse Family history: CAD, diabetes, hypertension Medications and Allergies Allergies Allergy/AdvReac Type Severity Reaction Status Date / Time KORINA Inhibitors AdvReac Intermediate QUIT Verified 02/06/17 07:56 BREATHING bacitracin AdvReac Intermediate BLISTERS Verified 02/06/17 07:56 [From Neosporin ([id number])] bacitracin zinc AdvReac Intermediate BLISTERS Verified 02/06/17 07:56 [From Neosporin ([id number])] neomycin sulfate AdvReac Intermediate BLISTERS Verified 02/06/17 07:56 [From Neosporin ([id number])] polymyxin B AdvReac Intermediate BLISTERS Verified 02/06/17 07:56 [From Neosporin ([id number])] Home Medications Medication Instructions Recorded Confirmed Last Taken Type AtorvaSTATin [Lipitor] 40 mg PO QHS 12/06/16 10/28/17 10/27/17 History Digoxin [Digox] 0.125 mg PO DAILY 12/06/16 10/28/17 02/06/17 History Diltiazem HCl [Diltiazem 24Hr ER] 240 mg PO DAILY 12/06/16 10/28/17 02/05/17 History Doxazosin [Cardura] 4 mg PO QDAY 12/06/16 10/28/17 02/06/17 History Ergocalciferol [Vitamin D2] 1 cap PO QWEEK 12/06/16 10/28/17 10/23/17 History Gabapentin 400 mg PO TID 12/06/16 10/28/17 10/28/17 History Levothyroxine Sodium [Synthroid] 112 mcg PO DAILY 12/06/16 10/28/17 10/28/17 History Losartan [Cozaar] 50 mg PO QDAY 12/06/16 10/28/17 10/28/17 History Chlorthalidone [Thalitone] 25 mg PO QDAY 10/28/17 10/28/17 Unknown History Glucosamine HCl 1,500 mg PO DAILY 10/28/17 10/28/17 Unknown History Insulin Aspart Protam & Aspart 10 units SUB-Q TID 10/28/17 10/28/17 10/28/17 History [NovoLOG Mix 70-30 Flexpen] Insulin NPH, Human [NovoLIN N] 36 units SUB-Q BID 10/28/17 10/28/17 10/28/17 History Multivitamin Tab [Multiple Vitamin 1 each PO DAILY 10/28/17 10/28/17 Unknown History TAB (Theragran)] [place]-3/Dha/Epa/Fish Oil [Fish Oil 1 each PO DAILY 10/28/17 10/28/17 Unknown History 1,000 mg Softgel] Active Meds: Active Medications Acetaminophen (Tylenol) 650 mg PO Q4H PRN PRN Reason: Pain MILD(1-3)/Fever >100.5/DANIELLE Apixaban (Eliquis) 10 mg PO Q12HR [facility]; Protocol Stop: 11/05/17 10:01 Last Admin: 10/31/17 11:42 Dose: 10 mg Apixaban (Eliquis) 5 mg PO Q12HR ИРИНА Atorvastatin Calcium (Lipitor) 40 mg PO QHS [facility] Last Admin: 10/30/17 21:23 Dose: 40 mg Chlorthalidone (Thalitone) 25 mg PO QDAY [facility] Last Admin: 10/31/17 11:38 Dose: 25 mg Digoxin (Lanoxin) 0.125 mg PO DAILY [facility] Last Admin: 10/31/17 11:38 Dose: 0.125 mg Diltiazem HCl (Cardizem Cd) 240 mg PO DAILY [facility] Last Admin: 10/31/17 11:40 Dose: 240 mg Doxazosin Mesylate (Cardura) 4 mg PO QDAY [facility] Last Admin: 10/31/17 11:39 Dose: 4 mg Famotidine (Pepcid) 20 mg PO BID [facility] Last Admin: 10/31/17 11:40 Dose: 20 mg Furosemide (Lasix) 40 mg IV 0600,1800 [facility] Last Admin: 10/31/17 06:08 Dose: 40 mg Gabapentin (Neurontin) 400 mg PO TID [facility] Last Admin: 10/31/17 11:39 Dose: 400 mg Insulin Human NPH (Humulin N) 36 unit SUB-Q BIDDIAB [facility] Last Admin: 10/31/17 11:41 Dose: 36 unit Levothyroxine Sodium (Synthroid) 112 mcg PO 0600 [facility] Last Admin: 10/31/17 06:10 Dose: 112 mcg Losartan Potassium (Cozaar) 50 mg PO QDAY [facility] Last Admin: 10/31/17 11:40 Dose: 50 mg Morphine Sulfate (Morphine) 2 mg IV Q4H PRN PRN Reason: Pain, Moderate (4-6) Multivitamins (Theragran Tab) 1 each PO DAILY [facility] Last Admin: 10/31/17 11:39 Dose: 1 each Ondansetron HCl (Zofran) 4 mg IV Q8H PRN PRN Reason: Nausea And Vomiting Oxycodone/Acetaminophen (Percocet 5/325) 1 tab PO Q6H PRN PRN Reason: Pain, Moderate (4-6) Potassium Chloride (K-Dur) 20 meq PO Q12HR [facility] Last Admin: 10/31/17 11:39 Dose: 20 meq Sodium Chloride (Sodium Chloride Flush Syringe 10 Ml) 10 ml IV BID [facility] Last Admin: 10/31/17 11:41 Dose: 10 ml Sodium Chloride (Sodium Chloride Flush Syringe 10 Ml) 10 ml IV PRN PRN PRN Reason: LINE FLUSH Last Admin: 10/30/17 06:27 Dose: 10 ml Zolpidem Tartrate (Ambien) 5 mg PO QHS PRN PRN Reason: Insomnia Review of Systems All systems: negative Exam - Constitutional Vitals: Temp Pulse Resp BP Pulse Ox 97.9 F 72 18 143/68 96 10/31/17 12:37 10/31/17 12:37 10/31/17 12:37 10/31/17 12:37 10/31/17 12:37 General appearance: Present: no acute distress, obese - EENT Eyes: Present: EOM intact ENT: hearing intact - Neck Neck: Present: supple - Respiratory Respiratory effort: normal (at rest on nasal cannula oxygen supplementation) - Extremities Extremities: no ischemia Extremity abnormal: edema (left lower extremity swelling with signs of chronic venous disease.) - Psychiatric Psychiatric: appropriate mood/affect, intact judgment & insight, cooperative - Neurologic Neurologic: no focal deficits Results - Labs CBC & Chem 7: 10/30/17 04:33 10/30/17 04:33 Labs: Abnormal lab results 10/30/17 10/30/17 10/31/17 Range/Units 17:49 21:25 06:20 POC Glucose 207 H 221 H 138 H (70-105) Assessment and Plan This patient presented to the hospital due to shortness of breath was noted have acute diastolic heart failure. Her symptoms have improved following admission. She has a history of paroxysmal atrial fibrillation. She has previously on anticoagulation, which had to be stopped due to a significant retroperitoneal bleed from the right kidney. By her account, she stayed in the intensive care unit for 5 days and was transfused 12 units of blood. She's been off all antiplatelet and anticoagulation since that point As part of the workup during this hospitalization, she was noted to have a chronic nonocclusive right popliteal DVT. A vascular surgery consult has been requested to evaluate and give an opinion on the need for anticoagulation. The chronic DVT does not require anticoagulation at this point. Resumption of anticoagulation would be solely based upon the benefits versus risk with regards to her atrial fibrillation (will defer to cardiology). She has been started on Eliquis by the hospitalist service. She appears to be tolerating this well to this point, although there is certainly a risk of bleeding at some point. - Patient Problems (1) Chronic deep vein thrombosis (DVT) of popliteal vein of right lower extremity Current Visit: Yes Status: Acute (2) Paroxysmal atrial fibrillation Current Visit: Yes Status: Acute (3) Acute diastolic (congestive) heart failure Current Visit: Yes Status: Acute
[2017-11-01] MEDS: LASIX IV SCH ×3 (00:07→05:27)
[2017-11-01] MEDS: SODIUM CHLORIDE FLUSH SYRINGE 10 ML IV PRN (00:07)
[2017-11-01] MEDS: SYNTHROID PO SCH (05:26)
[2017-11-01] MEDS: SODIUM CHLORIDE FLUSH SYRINGE 10 ML IV SCH ×2 (05:28→11:46)
[2017-11-01 07:52] LABS: Calcium 8.8 mg/dL (8.4-10.2)
[2017-11-01] MEDS: PEPCID PO SCH (11:40)
[2017-11-01] MEDS: THALITONE PO SCH (11:40)
[2017-11-01] MEDS: LANOXIN PO SCH (11:40)
[2017-11-01] MEDS: THERAGRAN Tab PO SCH (11:41)
[2017-11-01] MEDS: COZAAR PO SCH (11:41)
[2017-11-01] MEDS: K-DUR PO SCH (11:41)
[2017-11-01] MEDS: CARDIZEM CD PO SCH (11:41)
[2017-11-01] MEDS: NEURONTIN PO SCH ×2 (11:41→17:19)
[2017-11-01] MEDS: CARDURA PO SCH (11:42)
[2017-11-01 11:45] VITALS: BP 153/67
--- NOTE | 2017-11-01 11:58 | Progress Note ---
Assessment and Plan Assessment: Acute HFpEF - nearing/at euvolemia Paroxysmal atrial flutter s/p DCCV 03/2012 - currently with CVR Elevated DDimer - V/Q scan normal Chronic DVT in right popliteal vein HTN HLP DM TEODORO H/o hypothyroidism H/o pulmonary HTN JEF Probable chronic DVT in right popliteal Chronic LLE edema (due to breaking her foot in 2011) H/o right retroperitoneal/right perinephric hemorrhage in 2012 Plan: Convert IV lasix to PO lasix 40mg daily. Continue cardizem and digoxin. Vascular consultation appreciated - the chronic DVT does not require anticoagulation at this point. Pt could benefit from mcc systemic anticoagulation in regards to her atrial fibrillation. However, she has h/o right retroperitoneal/right perinephric hemorrhage in 2012 and must be monitored closely as OP for s/s bleeding. Indications, potential risks and benefits of salvage determiner OAC reviewed with pt and she is agreeable to continue Eliquis at this time. Pt may discharge home from cardiology standpoint. Follow up in our [place] office on 11/06/2017 @ 10:45AM for BMP and on 2017 @ 11:15AM with Dr. Drake. The patient has been seen in conjunction with Dr. Lowry who agrees with the assessment and plan of care. Subjective Date of service: 11/01/17 Principal diagnosis: Acute Diastolic HF Interval history: pt ambulating around room without difficulty, states SOB improving. Remains in AFib with CVR on telemetry, no pauses or bradycardia noted overnight. she states that she is ready to go home. Objective Last Vital Signs Temp 97.6 F 11/01/17 00:51 Pulse 76 11/01/17 11:42 Resp 18 11/01/17 00:51 BP 153/67 11/01/17 11:42 Pulse Ox 91 11/01/17 00:51 - Physical Examination General: No Apparent Distress HEENT: Positive: PERRL, Normocephaly, Mucus Membranes Moist Neck: Positive: neck supple, trachea midline Cardiac: Positive: irregularly irregular, S1/S2 Lungs: Positive: clear to auscultation Neuro: Positive: Grossly Intact Abdomen: Positive: Soft. Negative: Tender Skin: Negative: Rash, Wound Musculoskeletal: No Pain Extremities: Present: +2 Edema (LLE) - Labs and Meds Comprehensive Metabolic Panel 05/18/18 Range/Units 06:42 Sodium 138 (137-145) mmol/L Potassium 4.0 (3.6-5.0) mmol/L Chloride 97.6 L (98-107) mmol/L Carbon Dioxide 32 H (22-30) mmol/L BUN 34 H (7-17) mg/dL Creatinine 1.4 H D (0.7-1.2) mg/dL Glucose 141 H (65-100) mg/dL Calcium 8.8 (8.4-10.2) mg/dL - Imaging and Cardiology EKG: report reviewed, image reviewed Echo: report reviewed ( 10/2017: mild LVH, EF 60-65%, mild-mod MR, mild-mod TR, RVSP 69mmHg) - Telemetry EKG Rhythm: Atrial Fibrillation
[2017-11-01 12:30] LABS: Basophils % (Auto) 0.3 % (0.0-1.8); Eosinophils # (Auto) 0.2 K/mm3 (0.0-0.4); Eosinophils % (Auto) 2.5 % (0.0-4.3); Hematocrit 37.7 % (30.3-42.9); Hemoglobin 12.9 gm/dl (10.1-14.3); Lymphocytes # (Auto) 1.6 K/mm3 (1.2-5.4); Lymphocytes % (Auto) 17.9 % (13.4-35.0); Mean Corpuscular HGB Conc 34 % (30-34); Mean Corpuscular Hemoglobin 32 pg (28-32); Mean Corpuscular Volume 93 fl (79-97); Monocytes # (Auto) 0.7 K/mm3 (0.0-0.8); Monocytes % (Auto) 8.1 % (0.0-7.3); Platelet Count 183 K/mm3 (140-440); Red Blood Count 4.03 M/mm3 (3.65-5.03); Red Cell Distribution Width 13.4 % (13.2-15.2)
--- NOTE | 2017-11-01 13:32 | Discharge Summary ---
Providers - Providers Date of Admission: 10/28/17 17:32 Date of discharge: 11/01/17 Attending physician: CHRIS CABALLERO 10/29/17 00:04 Consult to Physician [CONS] Routine Comment: Consulting Provider: JUNAID MARTINEZ Physician Instructions: Reason For Exam: CHF 10/31/17 11:01 Consult to Physician [CONS] Routine Comment: Consulting Provider: OLY VEGA Physician Instructions: Reason For Exam: DVT, h/o retroperitonal bleed, AC recommendations Primary care physician: TUTU GLYNN Hospitalization Condition: Stable Disposition: DC- TO HOME OR SELFCARE Time spent for discharge: 33 min Core Measure Documentation - Palliative Care Palliative Care/ Comfort Measures: Not Applicable - Core Measures Any of the following diagnoses?: none Exam - Constitutional Vitals: Temp Pulse Resp BP Pulse Ox 97.6 F 76 18 153/67 91 11/01/17 00:51 11/01/17 11:42 11/01/17 00:51 11/01/17 11:42 11/01/17 00:51 General appearance: Present: no acute distress, well-nourished - EENT Eyes: Present: PERRL, EOM intact - Neck Neck: Present: supple, normal ROM - Respiratory Respiratory effort: normal Respiratory: bilateral: diminished, negative: rales, rhonchi, wheezing - Cardiovascular Rhythm: regular Heart Sounds: Present: S1 & S2 - Extremities Extremities: no ischemia, No edema - Abdominal General gastrointestinal: Present: soft, non-tender, non-distended, normal bowel sounds - Integumentary Integumentary: Present: clear, warm - Musculoskeletal Musculoskeletal: strength equal bilaterally, generalized weakness - Psychiatric Psychiatric: appropriate mood/affect, cooperative - Neurologic Neurologic: CNII-XII intact, other (residual weakness) Plan Activity: advance as tolerated, fall precautions Diet: diabetic, other (cardiac diet) Special Instructions: physical therapy Additional Instructions: Follow up cardiology [facility] office on 11/06/2017 @ 10:45AM for BMP and on 11/06/2017 @ 11:15AM with Dr. Drake. If you notice bleeding hold Eliquis contact M.Ochoa or go to ER Follow up with: KIM NAVA MD [Referring] - 3-5 Days IN-JESSEE DRAKE MD [Staff Physician] - 11/06/17 Prescriptions: Apixaban [Eliquis] 5 mg PO Q12HR #60 tablet
--- NOTE | 2017-11-01 15:03 | Query- Renal Failure ---
Deareno Reyes___Beatriz Date:__11/01/2017 Entry Level Java Developer/CDS:__Pearl Phone#:__[phone] Exercise your independent professional judgment when responding to query. Questions asked do not imply a particular answer is desired or expected. We greatly appreciate your clarification on this issue. Clinical Documentation States: 82 Year old female was admitted on 10/28/2017 for SOB. The Cardiology (Dr. Lowry) progress note on 11/01/2017 states "TEODORO" Clinical Findings Show: Creatinine 10/30 0.7 11/01 1.4 Please clarify if you mean: Acute Renal Failure with or due to: [ ] Tubular Necrosis [ ] Medullary Necrosis [ ] Vasomotor Nephropathy [ ] Shock Kidney [ ] Tubular Nephrosis [ ] Renal Tubular Stasis [ ] Cortical Necrosis [ ] Acute Renal Failure (unspecified) [ ] Lower Tubular Nephrosis [ x] Other: Tubular necrosis, due to diuretic meducation use [ ] Not Applicable Present on Admission: [ ] Yes (Y) [ ] Clinically undeterminable (W) [ x] No (N) Please also document response in your Progress Notes and/or Discharge Summary and indicate if the condition was present on admission. STEFFEND
[2017-11-01] MEDS ORDERED: ELIQUIS PO SCH (22:00)
[2017-11-02] MEDS ORDERED: LASIX PO SCH (06:00)
[2017-11-05] MEDS ORDERED: ELIQUIS PO SCH (22:00)
== END 2017-11-01 18:22 | disposition home or self-care (01) | DRG 291 ==
LOC: ED 12:35 → 4A 17:32
PROVIDERS: ADMIT Internal Medicine; ATTEND Internal Medicine
DX: I11.0 Hypertensive heart disease with heart failure (principal); N17.0 Acute kidney failure with tubular necrosis; I82.532 Chronic embolism and thrombosis of left popliteal vein; I48.0 Paroxysmal atrial fibrillation; I50.31 Acute diastolic (congestive) heart failure; E03.9 Hypothyroidism, unspecified; I27.20 Pulmonary hypertension, unspecified; E11.42 Type 2 diabetes mellitus with diabetic polyneuropathy; G47.33 Obstructive sleep apnea (adult) (pediatric); E78.2 Mixed hyperlipidemia; T50.2X5A Adverse effect of carbonic-anhydrase inhibitors, benzothiadiazides and other diuretics, initial encounter; Y92.89 Other specified places as the place of occurrence of the external cause; Z79.4 Long term (current) use of insulin; N14.1 Nephropathy induced by other drugs, medicaments and biological substances; Y92.9 Unspecified place or not applicable
CPT/HCPCS: 36415; 71046; 78582; 80048; 80053; 80061; 80074; 80162; 81001; 82962; 83036; 83880; 84484; 85025; 85379; 93005; 93010; 93306; 93970; A9270-GY; A9540; A9558; J1650; J1815; J1940

== ENCOUNTER 2018-10-30 11:15 | Day surgery (SDC) | payer MEDICARE, OTHER ==
[2018-10-30] MEDS ORDERED: MYDRIACYL OS ONE (11:28)
[2018-10-30] MEDS ORDERED: IOPIDINE OS ONE (11:28)
[2018-10-30] MEDS ORDERED: NEOFRIN OS ONE (11:28)
[2018-10-30 13:23] VITALS: BP 141/69
[2018-10-30] MEDS ORDERED: MYDRIACYL ONE (14:10)
[2018-10-30] MEDS ORDERED: NEOFRIN ONE (14:10)
[2018-10-30] MEDS ORDERED: IOPIDINE ONE (14:10)
== END 2018-10-30 11:16 | disposition home or self-care (01) ==
LOC: OR 11:15
PROVIDERS: ATTEND Specialist
DX: H26.492 Other secondary cataract, left eye (principal); E11.36 Type 2 diabetes mellitus with diabetic cataract; I48.91 Unspecified atrial fibrillation; I82.531 Chronic embolism and thrombosis of right popliteal vein; G47.33 Obstructive sleep apnea (adult) (pediatric); I10 Essential (primary) hypertension; E78.5 Hyperlipidemia, unspecified; Z79.899 Other long term (current) drug therapy; Z79.4 Long term (current) use of insulin; Z88.8 Allergy status to other drugs, medicaments and biological substances
CPT/HCPCS: 82962